=== PATIENT | female | born 1950 | race Hispanic/Latino ===

== ENCOUNTER 2022-08-27 18:32 | Emergency (ER) | payer MEDICARE ==
[~2022-08-27] VITALS: Ht 162.6 cm; Wt 74.8 kg
[2022-08-27] MEDS ORDERED: KETOROLAC TROMETHAMINE 30 MG/ML VIAL IV STA (18:58)
[2022-08-27] MEDS ORDERED: ONDANSETRON HCL INJ 2MG/ML 2ML 2 MG/ML VIAL IV STA (18:58)
[2022-08-27 19:15] LABS: CLARITY,URINE SL CLOUDY (CLEAR); COLOR,URINE YELLOW (YELLOW); KETONES,URINE NEGATIVE (NEGATIVE); LEUKOCYTE ESTERASE ,URINE NEGATIVE (NEGATIVE); NITRITE,URINE NEGATIVE (NEGATIVE); PROTEIN,URINE DIPSTICK NEGATIVE (NEGATIVE); URINE UROBILINOGEN 0.2 mg/dL (0.2 - 1)
[2022-08-27 19:19] LABS: BASOPHILS # (AUTO) 0.1 (0.0-0.1); BASOPHILS % 0.7 % (0.0-1.0); EOSINOPHILS # (AUTO) 0.3 (0.0-0.4); EOSINOPHILS % 2.6 % (0.0-6.0); HEMATOCRIT 37.5 % (34.2-44.1); HEMOGLOBIN 12.2 g/dL (12.0-16.0); LYMPHOCYTES # (AUTO) 2.3 (1.0-3.2); LYMPHOCYTES % 23.4 % (18.0-39.1); MEAN CORPUSCULAR HEMOGLOBIN 29.1 pg (28-32); MEAN CORPUSCULAR HGB CONC 32.5 g/dL (31-35); MEAN CORPUSCULAR VOLUME 89.5 fL (81-99); MONOCYTES # (AUTO) 0.5 (0.2-0.8); MONOCYTES % 5.1 % (4.4-11.3); NEUTROPHILS # (AUTO) 6.6 (2.1-6.9); NEUTROPHILS % 67.7 % (38.7-80.0); PLATELET COUNT 277 x10e3/uL (140-360); RED BLOOD COUNT 4.19 x10e6/uL (3.6-5.1); RED CELL DISTRIBUTION WIDTH 13.2 % (11.7-14.4)
[2022-08-27 19:35] LABS: ANION GAP 16.3 mmol/L (8-16); CALCIUM 9.7 mg/dL (8.4-10.2); CREATININE, SERUM 1.24 mg/dL (0.57-1.11); POTASSIUM 4.3 mmol/L (3.5-5.1)
[2022-08-27] MEDS ORDERED: KETOROLAC TROME10 MG PO (20:20)
[2022-08-27] MEDS ORDERED: ONDANSETRON ODT4 MG PO (20:20)
[2022-08-27] MEDS ORDERED: CIPRO500 MG PO (20:20)
[2022-08-27] MEDS ORDERED: METRONIDAZOLE500 MG PO (20:20)
[2022-08-27 20:22] VITALS: BP 99/64
== END 2022-08-27 20:32 | disposition home or self-care (01) ==
LOC: ER 18:48
DX: R10.30 Lower abdominal pain, unspecified (principal); K57.32 Diverticulitis of large intestine without perforation or abscess without bleeding; E11.65 Type 2 diabetes mellitus with hyperglycemia; I10 Essential (primary) hypertension; E78.5 Hyperlipidemia, unspecified; Z86.73 Personal history of transient ischemic attack (TIA), and cerebral infarction without residual deficits; Z87.442 Personal history of urinary calculi
CPT/HCPCS: 36415; 74176; 80048; 81001; 85025; 99284; J1885; J2405

== ENCOUNTER 2024-12-16 08:35 | Outpatient (RCR) | payer MEDICARE ==
[~2024-12-16 08:35] MED LIST: CIPRO500 MG PO; KETOROLAC TROME10 MG PO; METRONIDAZOLE500 MG PO; ONDANSETRON ODT4 MG PO
== END 2025-01-13 ==
LOC: PT 08:35
PROVIDERS: ATTEND Physician Assistant
DX: S86.012A Strain of left Achilles tendon, initial encounter (principal)